=== PATIENT | male | born 1985 | race Caucasian/White ===

== ENCOUNTER 2017-09-13 10:31 | Emergency (ER) | payer BC ==
[~2017-09-13] VITALS: Ht 177.8 cm; Wt 79.0 kg
[2017-09-13] MEDS ORDERED: HYDROcodone/acetaminophen 10/325mg tab PO ONE (10:35)
[2017-09-13 11:00] VITALS: BP 129/84
[2017-09-13] MEDS ORDERED: HYDR-565 PO (11:22)
[2017-09-13] MEDS ORDERED: ketorolac trometh inj. 60 MG/2 ML VIAL IM ONE (11:40)
== END 2017-09-13 12:00 | disposition home or self-care (01) ==
LOC: ER 10:31
DX: S93.402A Sprain of unspecified ligament of left ankle, initial encounter (principal); Z79.899 Other long term (current) drug therapy; W54.1XXA Struck by dog, initial encounter; Y93.89 Activity, other specified; Y92.89 Other specified places as the place of occurrence of the external cause; Y99.8 Other external cause status
CPT/HCPCS: 29515; 73610; 96372; 99284; A6449; J1885